=== PATIENT | male | born 1995 | race American Indian/Alaskan Native ===

== ENCOUNTER 2017-04-03 21:59 | Emergency (ER) | payer SELFPAY ==
[2017-04-03 21:59] VITALS: BMI 23.3
[2017-04-03 22:08] VITALS: BP 126/82; PULSE 58; TEMP 98.2; O2SAT 99
--- NOTE | 2017-04-03 23:18 | ED PDOC ---
HPI: SOB/CHF/COPD Time Seen by Provider: 04/03/17 22:20 Chief Complaint (Nursing): Shortness Of Breath Chief Complaint (Provider): Chest pain and shortness of breath History Per: Patient History/Exam Limitations: no limitations Onset/Duration Of Symptoms: Days (60), Intermittent Episodes Current Symptoms Are (Timing): Gone Now Initiating Event: Other (Stress) Quality: "Pain" Exacerbating Factor(s): Other (Stress) Current Respiratory Medications: None Severity: Moderate Associated Symptoms: Chest Pain. denies: Fever, Chills, Sweating, Bloody Cough , Productive Cough, Heart Racing, Leg/Calf Pain, Ankle/Leg Swelling, Dizziness, Light-headedness, Anxiety, Tingling In Hands Or Face, Musle Spasms In Hands Or Feet Recently: Treated By A Physician Additional History Per: Patient Additional Complaint(s): Ree Lopez is a 22 y/o male who is here this evening with complaints of intermittent episodes of diffuse anterior chest pain and shortness of breath over the last two months that have become more regular and concerning. Patient denies any pain radiation, and the episodes resolve within minutes. This evening he experienced a strong sense of shortness of breath just prior to arrival while sitting in a smith chair that prompted him to seek evaluation. There is a component of stress that the patient admits to as well. Patient reports that he was recently seen by a turf keeper who is the employer of his girlfriend, who performed an EKG that was normal and recommended an echocardiogram. The echocardiogram is scheduled. No fever, chills, cough, or other complaint. Past Medical History Reviewed: Historical Data, Nursing Documentation, Vital Signs Vital Signs: Last Vital Signs Temp 98.2 F 04/03/17 22:04 Pulse 58 L 04/03/17 22:04 Resp 16 04/03/17 23:42 BP 126/82 04/03/17 22:04 Pulse Ox 99 04/04/17 01:09 - Medical History PMH: No Chronic Diseases Denies: Depression - Surgical History Surgical History: No Surg Hx - Family History Family History: States: Unknown Family Hx - Social History Current smoker - smoking cessation education provided: No Alcohol: None Drugs: Denies - Home Medications Home Medications: Ambulatory Orders Medication Instructions Recorded No Known Home Med [No Known Home 01/24/14 Med] - Allergies Allergies/Adverse Reactions: Allergies Allergy/AdvReac Type Severity Reaction Status Date / Time No Known Allergies Allergy Verified 10/27/14 20:39 Review of Systems ROS Statement: Except As Marked, All Systems Reviewed And Found Negative Cardiovascular: Positive for: Chest Pain Respiratory: Positive for: Shortness of Breath Physical Exam - Reviewed Nursing Documentation Reviewed: Yes Vital Signs Reviewed: Yes - Physical Exam Appears: Positive for: Well, Non-toxic, No Acute Distress Head Exam: Positive for: ATRAUMATIC, NORMAL INSPECTION, NORMOCEPHALIC Skin: Positive for: Normal Color, Warm, DRY Eye Exam: Positive for: EOMI, Normal appearance, PERRL ENT: Positive for: Normal ENT Inspection Neck: Positive for: Normal, Painless ROM Cardiovascular/Chest: Positive for: Regular Rate, Rhythm Respiratory: Positive for: CNT, Normal Breath Sounds Gastrointestinal/Abdominal: Positive for: Normal Exam, Bowel Sounds, Soft Back: Positive for: Normal Inspection Extremity: Positive for: Normal ROM Neurologic/Psych: Positive for: Alert, Oriented - Laboratory Results Result Diagrams: 04/03/17 23:46 04/03/17 23:46 - ECG O2 Sat by Pulse Oximetry: 99 (RA) Pulse Ox Interpretation: Normal - Radiology X-Ray: Interpreted by Me, Viewed By Me X-Ray Interpretation: No Acute Disease - Progress Condition: Re-examined, Improved Medical Decision Making Medical Decision Making: Initial Impression: Chest pain and shortness of breath in the setting of reported stress Initial Plan: - EKG - CXR - Labs Labs reviewed and revealed no clinically significant findings. CXR reviewed by me and was unremarkable. Discussed results with patient, he is medically stable for discharge. All questions answered. Return and follow up instructions given. Scribe Attestation Documented by Loran Mckinney acting as a scribe for Jr Garsia MD. Provider Attestation: All medical record entries made by the Scribe were at my direction and personally dictated by me. I have reviewed the chart and agree that the record accurately reflects my personal performance of the history, physical exam, medical decision making, and the department course for this patient. I have also personally directed, reviewed, and agree with the discharge instructions and disposition. Disposition - Clinical Impression Clinical Impression: Anxiety, Atypical chest pain Doctor Will See Patient In The: Office Counseled Patient/Family Regarding: Studies Performed, Diagnosis, Need For Followup - Disposition Referrals: [facility] [Outside] [facility] [Outside] Disposition: Routine/Home Disposition Time: 00:45 Condition: STABLE Instructions: Stress (ED), Noncardiac Chest Pain (ED)
[2017-04-03 23:44] VITALS: RESP 16
[2017-04-03 23:55] LABS: BASO # 0.1 K/uL (0.0-0.2); BASO % 0.6 % (0.0-2.0); EOS # 0.1 K/uL (0.0-0.7); EOS % 1.5 % (0.0-4.0); HEMOGLOBIN 12.7 g/dL (12.0-18.0); LYMPH # 3.2 K/uL (1.0-4.3); LYMPH % 37.7 % (20.0-40.0); MEAN CELL VOLUME 92.9 fl (80.0-94.0); MEAN CORPUSCULAR HEMOGLOBIN 30.8 pg (27.0-31.0); MEAN CORPUSCULAR HGB CONC 33.1 g/dL (33.0-37.0); MEAN PLATELET VOLUME 8.8 fl (7.2-11.7); MONO # 0.5 K/uL (0.0-0.8); MONO % 5.4 % (0.0-10.0); NEUT # 4.7 K/uL (1.8-7.0); NEUT % 54.8 % (50.0-75.0); NRBC % 0.1 % (0.0-0.0); RBC 4.13 Mil/uL (4.40-5.90); RED CELL DISTRIBUTION WIDTH 13.3 % (11.5-14.5); WHITE BLOOD COUNT 8.6 K/uL (4.8-10.8)
[2017-04-04 00:08] LABS: ALB/GLOB RATIO 1.8 (1.0-2.1); ALBUMIN 4.5 g/dL (3.5-5.0); ALT/SGPT 37 U/L (21-72); AST/SGOT 34 U/L (17-59); BLOOD UREA NITROGEN 15 mg/dl (9-20); CALCIUM 9.4 mg/dL (8.4-10.2); GFR AFRICAN-AMERICAN > 60; GFR NON-AFRICAN AMERICAN > 60
[2017-04-04 00:09] LABS: BARBITURATES, UR NEGATIVE (NEGATIVE); BENZODIAZEPINES, UR NEGATIVE (NEGATIVE); OPIATES, UR NEGATIVE (NEGATIVE); PHENCYCLIDINE, UR NEGATIVE (NEGATIVE)
--- NOTE | 2017-04-04 09:44 | CARD ---
APPROVED REPORT EKG Measurement Heart [id number] <Conclusion> Sinus bradycardia Otherwise normal ECG
--- NOTE | 2017-04-04 10:23 | RAD ---
HISTORY: chest pain COMPARISON: No prior. TECHNIQUE: Chest PA and lateral FINDINGS: LUNGS: No active pulmonary disease. PLEURA: No significant pleural effusion identified. No pneumothorax apparent. CARDIOVASCULAR: Normal. OSSEOUS STRUCTURES: No significant abnormalities. VISUALIZED UPPER ABDOMEN: Normal. OTHER FINDINGS: None. IMPRESSION: No active disease.
== END 2017-04-04 01:29 | disposition home or self-care (01) ==
LOC: H.ER 21:59
DX: F41.9 Anxiety disorder, unspecified (principal)
CPT/HCPCS: 71020; 80053; 84484; 85025; 93005; 99282; G0480